=== PATIENT | female | born 1960 | race Caucasian/White ===

== ENCOUNTER 2021-04-17 10:32 | Outpatient (CLI) | payer BC, SELFPAY ==
[2021-04-17 10:53] LABS: Hematocrit 48.5 % (37.0-47.0); Hemoglobin 15.8 g/dL (12.0-15.0); Mean Corpuscular HGB Conc 32.6 g/dl (32-36); Mean Corpuscular Hemoglobin 30.9 pg (26-34); Mean Corpuscular Volume 94.7 fl (80-100); Mean Platelet Volume 9.5 fl (7.4-10.4); Platelet Count Result 247 k/mm3 (150-375); Red Blood Count 5.12 M/mm3 (4.2-5.4); Red Cell Distribution Width 13.8 % (11.5-14.5); White Blood Count 11.3 K/mm3 (4.5-10.0)
--- NOTE | 2021-04-17 10:58 | ECG_ITS ---
Measurements Intervals [place] Rate: 86 P: 34 NC: 173 QRS: -15 QRSD: 88 T: 11 QT: 378 QTc: 452 Interpretive Statements SINUS RHYTHM LOW QRS VOLTAGE IN PRECORDIAL LEADS BORDERLINE R WAVE PROGRESSION, ANTERIOR LEADS BORDERLINE T WAVE ABNORMALITY- ANT/INF LEADS BASELINE WANDER- III, AVF, V1-V4 BORDERLINE ECG Electronically Signed On 04-17-2021 11:08:05 CDT by Ruben Hernandez D.O.
[2021-04-17 11:11] LABS: Hemoglobin A1C 7.4 % (<5.7)
[2021-04-17 11:25] LABS: Anion Gap 11 mmol/L (8-16); Blood Urea Nitrogen 14 mg/dL (7-17); Calcium 9.7 mg/dL (8.4-10.2); Carbon Dioxide 28 mmol/L (22-30); Chloride 103 mmol/L (98-107); Estimated Glomerular Filt Rate > 60; Glucose 165 mg/dL (65-110); Potassium 4.5 mmol/L (3.4-5.0); Sodium 142 mmol/L (137-145)
== END 2021-04-17 10:33 | disposition home or self-care (01) ==
PROVIDERS: Visit Provider Surgery Plastic and Reconstructive Surgery
DX: E11.9 Type 2 diabetes mellitus without complications (principal)
CPT/HCPCS: 36415; 80048; 83036; 85027; 93005

== ENCOUNTER 2021-04-20 01:57 | Day surgery (SDC) | payer BC, SELFPAY ==
[2021-04-19 10:44] VITALS: BMI 43.1
[2021-04-20] VITALS (8 sets, daily range): BP systolic 106–158; BP diastolic 66–100; PULSE 85–117; RESP 10–16; TEMP 36.3–36.7; O2SAT 92–96
[2021-04-20 11:47] LABS: Urine Cotinine NEGATIVE
--- NOTE | 2021-04-20 11:53 | WPDANESEPPF ---
Anes - Initial Pre Proc Eval Procedure: Operation Date: 04/20/21 13:00 Proposed Procedures p Bilateral Breast Reduction - Bao Shi MD Date/Time: 04/20/21 11:53 Surgeon: Bao Shi MD Pre Op Diagnosis: Macromastia Patient Data Age: 60 Gender: F Height: 1.65 m Weight: 117.48 kg Allergies Allergy/AdvReac Type Severity Reaction Status Date / Time No Known Allergies Allergy Verified 04/20/21 11:34 Home Medications Medication Instructions Recorded Confirmed Type B-complex with vitamin C 1 cap PO DAILY 01/09/21 04/19/21 History azelastine 205.5 mcg (0.15 %) 1 spray INTRANASAL QHS 01/09/21 04/19/21 History nasal spray bupropion HCl 150 mg tablet,12 hr 150 mg PO HS 01/09/21 04/19/21 History sustained-release cholecalciferol (vitamin D3) 10 10 mcg PO DAILY 01/09/21 04/20/21 History mcg (400 unit) capsule citalopram 40 mg tablet 20 mg PO DAILY 01/09/21 04/20/21 History empagliflozin 25 mg tablet 25 mg PO DAILY 01/09/21 04/20/21 History exenatide microspheres 2 mg/0.85 2 mg SUBCUT WEEKLY 01/09/21 04/20/21 History mL subcutaneous auto-injector fluticasone propionate 50 1 spray INTRANASAL DAILY 01/09/21 04/20/21 History mcg/actuation nasal spray,suspension glyburide 5 mg tablet 5 mg PO DAILY 01/09/21 04/20/21 History loratadine 10 mg tablet 10 mg PO DAILY 01/09/21 04/20/21 History montelukast 10 mg tablet 10 mg PO DAILY 01/09/21 04/20/21 History omeprazole 20 mg capsule,delayed 20 mg PO DAILY 01/09/21 04/20/21 History release sitagliptin 50 mg-metformin 1,000 1 tablet PO BID 01/09/21 04/20/21 History mg tablet sulindac 200 mg tablet 200 mg PO BID 01/09/21 04/20/21 History trazodone 150 mg tablet 150 mg PO QHS PRN 01/09/21 04/20/21 History insulin degludec 100 unit/mL 18 unit SUBCUT QHS ml 01/11/21 04/20/21 History subcutaneous solution docusate sodium 100 mg capsule 100 mg PO BID #14 cap 04/17/21 04/19/21 Rx hydrocodone 5 mg-acetaminophen 325 1 tablet PO Q6H PRN #15 tablet 04/17/21 04/19/21 Rx mg tablet ondansetron HCl 4 mg tablet 4 mg PO Q6H PRN #30 tablet 04/17/21 04/19/21 Rx Laboratory Tests 04/20/21 11:28 Cotinine Negative Patient hx anesthesia problems: none Family hx anesthesia problems: none Results Review: All pre-operative results and documents have been reviewed as part of the pre-operative evaluation. [facility] Past Medical History Medical History Depression Diabetes Seasonal allergies Surgical History Surgical History History of carpal tunnel release of both wrists History of D&C Social History Social History Smoking packs per day: 1 Smoking cigarettes per day: 20.0 Years smoked: 30 Smoking pack-years: 30.00 Smoking status: Former smoker Smoking end date: 07/01/10 Alcohol intake: never Substance use: never Substance use type: does not use Living arrangements: with family Spiritual care concerns: No Anes - Eval Final PreProcedure Day of Procedure 04/20/21 11:53 Patient weight: morbidly obese Heart: regular rate and rhythm Lungs: clear to auscultation and normal air movement Airway: Mallampati scale class 1 Neurological: alert and oriented Last oral intake: >/= 8 hours ASA classification: III Emergent: no Anesthetic plan: proceed Anesthesia type and monitoring: general LMA and standard monitoring Results Review: All pre-operative results and documents have been reviewed as part of the pre-operative evaluation. Informed Consent: The patient's anesthetic plan and its attendant risks and benefits were discussed with the patient/family/POA. Questions were solicited and answers provided to the satisfaction of the patient/family/POA.
--- NOTE | 2021-04-20 12:03 | P.OP_ITS ---
Procedure Note - Detailed Date of Procedure 04/20/21 Pre-op Diagnosis Macromastia Post-op Diagnosis same Procedure Performed Bilateral reduction mammaplasty Surgeon Bao Shi MD Anesthesia general Findings Inverted T Free nipple graft Tissue removed: Right - 3053.5 grams Left - 2907.2 grams Lipoaspirate 700cc Description of Procedure She is here today for bilateral breast reduction. Previously and again today the risks, benefits, alternatives were discussed in extensive detail. I wanted her to be very realistic about the risks involved as well as expectations. We discussed aftercare and what to monitor for. She understands we can never guara ntee final breast size and there will always be asymmetry. I was very upfront and honest about the risks of sensation change and even nipple loss (). Made sure answered all of her questions to her satisfaction today and consent was obtained. She was marked in the preoperative holding area with their verification. The patient was taken to the operating room placed supine on the operating table. Anesthesia was provided by anesthesiology. She was prepped and draped in a standard sterile fashion. A surgical time-out was taken. Stab incisions were made and I tumessed with a tumescent solution. I marked out the nipple-areolar complex at 42 mm. This was removed and kept in moist gauze. I then removed the inferior portion of the breast as well as the central keel to get shape based on preoperative planning. At this point copiously irrigated with saline solution and verified a strict hemostasis. I reapproximated the pillars using a 2-0 PDS. I tailor tacked the breast into place with enrrique. She was placed in a sitting position. I verified the nipple-areolar complex position based on preoperative markings, intraoperative measurements, and observation which were in full agreement. This nipple-areolar complex was marked at 42 mm in size. There was clear shape / volume discrpency that was adjusted with 5mm basket canula based on S.A.F.E. techinque. Placed supine. Nipple-areolar complex was defatted and sutured into place with 5-0 chromic. I closed IMF deep with 1 strattafix. I closed the vertical incision with 3-0 Monocryl in the IMF with 3-0 stratafix. Then everything was closed using a running subcuticular 4-0 Monocryl followed by Steri-Strips. A tie over bolster was created with wet cotton and 3-0 Nylon. A dressing was placed followed by surgical bra. Patient was awoke and taken to PACU without difficulty. All instrument sponge counts were correct at the end of the case. Estimated Blood Loss 75 Drains No Packing Yes (bolster) Pathology yes Complications No immediate complications Condition stable Disposition PACU
[2021-04-20] MEDS: LACTATED RINGERS 1,000 ML 30 ML IV CONT ×2 (12:07→16:03)
--- NOTE | 2021-04-20 12:10 | WPDHPUPDATE1 ---
History and Physical Update Update Date/Time: 04/20/21 12:10 History and Physical has been reviewed, including an updated exam of the patient. There are NO changes in the patient's condition. Risks, benefits, and alternatives have been discussed and questions answered. Patient agrees to proceed with procedure.
[2021-04-20 12:13] LABS: Glucose Point of Care 162 mg/dl (65-105)
[2021-04-20] MEDS: LACTATED RINGERS IRRIG 1,000 ML, LIDOCAINE HCL 1% LOCAL INJ 50 ML, EPINEPHrine HCL INJ ... INFILTRATE (12:17)
[2021-04-20] MEDS: ceFAZolin 2 GM/D5W 50 ML 2 GM/50 ML BAG IVPB (12:17)
[2021-04-20] MEDS: TRANEXAMIC ACID 1,000MG/ISO100 1,000 MG/100 ML BAG 200 MG IVPB (12:17)
--- NOTE | 2021-04-20 15:18 | SUR.OPER ---
Fresh specimens given to ELISABETH Seaman. Janine in pathology received specimens at 1514 per Jurgen PCT
[2021-04-20 16:12] LABS: Glucose Point of Care 231 mg/dl (65-105)
[2021-04-20] MEDS: INSULIN HUMAN REGULAR (*BKC) 100 UNITS/ML IV PUSH (16:18)
[2021-04-20] MEDS: fentaNYL CITRATE INJ (*CRX) 100 MCG/2 ML VIAL 25 MCG IV PUSH (16:43)
--- NOTE | 2021-04-20 16:55 | SUR.PHASEI ---
Informed on-call anesthesia about patient's HR running in 110's/sinus tach. States can give fluid bolus, no additional orders.
[2021-04-20] MEDS: oxyCODONE HCL (*CRX) 5 MG TAB IR PO (17:22)
== END 2021-04-20 17:50 | disposition home or self-care (01) ==
PROVIDERS: PCP Nurse Practitioner Family; Visit Provider Surgery Plastic and Reconstructive Surgery
PROC: 0HBV0ZZ Excision of Bilateral Breast, Open Approach (ICD-10-PCS; CPT 19318; principal; 2021-04-20 13:00)
DX: N62 Hypertrophy of breast (principal); N60.32 Fibrosclerosis of left breast; N60.31 Fibrosclerosis of right breast; N60.42 Mammary duct ectasia of left breast; N60.41 Mammary duct ectasia of right breast; M54.9 Dorsalgia, unspecified; G89.29 Other chronic pain; M54.2 Cervicalgia; M25.511 Pain in right shoulder; M25.512 Pain in left shoulder; N64.4 Mastodynia; L98.9 Disorder of the skin and subcutaneous tissue, unspecified; E11.9 Type 2 diabetes mellitus without complications; F32.9 Major depressive disorder, single episode, unspecified; Z87.891 Personal history of nicotine dependence; E66.01 Morbid (severe) obesity due to excess calories; Z68.41 Body mass index [BMI] 40.0-44.9, adult; Z79.84 Long term (current) use of oral hypoglycemic drugs; Z79.4 Long term (current) use of insulin
CPT/HCPCS: 19318; 80307; 82948; 88305; A9270; J0171; J0330; J0690; J1100; J1170; J1815; J2250; J2405; J2704; J3010; J7120

== ENCOUNTER 2022-02-07 11:05 | Outpatient (CLI) | payer BC, SELFPAY ==
[2022-02-07 13:05] LABS: Hemoglobin A1C 6.5 % (<5.7)
== END 2022-02-07 11:06 | disposition home or self-care (01) ==
LOC: ANHLAB 11:10
PROVIDERS: PCP Nurse Practitioner Family; Visit Provider Surgery Plastic and Reconstructive Surgery
DX: E11.9 Type 2 diabetes mellitus without complications (principal)
CPT/HCPCS: 36415; 83036

== ENCOUNTER 2022-02-21 02:15 | Day surgery (SDC) | payer BC, OTHER, SELFPAY ==
[2022-02-19 13:59] VITALS: BMI 37.5
--- NOTE | 2022-02-19 14:13 | PC.NURSE ---
Report to the Outpatient Waiting Room, entrance under the green pavilion located off [facility], at time 1000 on date 02/21/22. OR Time: 1200. - You and your visitor will be asked to self-screen and do not enter if you have any COVID symptoms. - Only one visitor and NO children visitors are allowed at this time. - The patient visitor is requested to leave or wait in car when not with patient due to restrictions. - A mask is required within the hospital. Patients may have clear liquids (water, carbonated beverages, clear teas, apple juice) until 3 hours prior to surgery with a maximum of 20 ounces. - No food from midnight until time of surgery Take the following medications with a SIP of water the morning of surgery: Citalopram Medications to discontinue per physician Vitamins/supplements Date to take last dose-stop starting today Please no make-up, nail bulgarian, hairspray, perfume, deodorant, or body powder the day of surgery. No jewelry (including any body piercings) or valuables the day of surgery, leave them at home. Please take a shower or bath the night before, or the morning of, surgery with an antibacterial soap. Wear comfortable, loose fitting clothing. - Jewelry must be removed prior to entering the operating room. Rings and piercings that are not removed may be cut off. - The hospital will not accept responsibility for valuables. - Please leave all valuables, including medications, at home the day of surgery. If you are going home after surgery, a licensed company driver must drive you home. - NO public transportation without another adult. - We recommend that an adult stay with you for 24 hours following discharge. - We also recommend that you do not drive, make important decision, drink alcoholic beverages, or take any drugs that were not prescribed by your health care provider for at least 24 hours after your discharge time. Follow any additional instructions given to you from your surgeon. If you or anyone in your household have experienced Covid symptoms in the past week, please notify your surgeon or the nurse liaison at the phone number below for possible testing. Telephone instructions given to patient and asked if any additional questions and then verbalized understanding. Patient advised to call surgeon office or pre surgery nurse liaison [phone] if any additional questions.
--- NOTE | 2022-02-20 13:56 | WPDANESEPPF ---
Anes - Initial Pre Proc Eval Procedure: Operation Date: 02/21/22 12:00 Proposed Procedures p Bilateral Lateral Breast Skin Excision, Right Breast Fat Grafting, Right Breast Scar Revision Inferior T Junction - Bao Shi MD Date/Time: 02/20/22 13:56 Surgeon: Bao Shi MD Pre Op Diagnosis: skin laxity, hx of breast reduction Patient Data Age: 61 Gender: F Height: 1.65 m Weight: 102.51 kg Allergies Allergy/AdvReac Type Severity Reaction Status Date / Time hydrocodone [From [place]] AdvReac Mild Foot Verified 02/19/22 13:53 itching Home Medications Medication Instructions Recorded Confirmed Type B-complex with vitamin C 1 cap PO DAILY 01/09/21 02/19/22 History azelastine 205.5 mcg (0.15 %) 1 spray intranasal QHS 01/09/21 02/19/22 History nasal spray bupropion HCl 150 mg tablet,12 hr 150 mg PO HS 01/09/21 02/19/22 History sustained-release (Wellbutrin SR) citalopram 40 mg tablet 20 mg PO DAILY 01/09/21 02/19/22 History empagliflozin 25 mg tablet 25 mg PO DAILY 01/09/21 02/19/22 History (Jardiance) exenatide microspheres 2 mg/0.85 2 mg subcut WEEKLY 01/09/21 02/19/22 History mL subcutaneous auto-injector (Bydureon BCise) fluticasone propionate 50 1 spray intranasal DAILY 01/09/21 02/19/22 History mcg/actuation nasal spray,suspension (Flonase Allergy Relief) glyburide 5 mg tablet 5 mg PO DAILY 01/09/21 02/19/22 History loratadine 10 mg tablet (Allergy 10 mg PO DAILY 01/09/21 02/19/22 History Relief (loratadine)) montelukast 10 mg tablet 10 mg PO DAILY 01/09/21 02/19/22 History (Singulair) omeprazole 20 mg capsule,delayed 20 mg PO DAILY 01/09/21 02/19/22 History release sitagliptin 50 mg-metformin 1,000 1 tablet PO BID 01/09/21 02/19/22 History mg tablet (Janumet) sulindac 200 mg tablet 200 mg PO BID 01/09/21 02/19/22 History trazodone 150 mg tablet 150 mg PO QHS PRN Insomnia 01/09/21 02/19/22 History insulin degludec 100 unit/mL 18 unit subcut QHS 01/11/21 02/19/22 History subcutaneous solution (Tresiba U-100 Insulin) cephalexin 500 mg capsule 500 mg PO Q8H #21 caps 05/10/21 02/19/22 Rx docusate sodium 100 mg capsule 100 mg PO DAILY #14 caps 02/08/22 02/19/22 Rx (Colace) oxycodone-acetaminophen 5 mg-325 1 tablet PO Q6H PRN pain #30 tabs 02/09/22 02/19/22 Rx mg tablet (Percocet) cholecalciferol (vitamin D3) 125 5,000 unit PO DAILY 02/19/22 02/19/22 History mcg (5,000 unit) tablet (Vitamin D3) Patient hx anesthesia problems: none Family hx anesthesia problems: none Results Review: All pre-operative results and documents have been reviewed as part of the pre-operative evaluation. [facility] Past Medical History Medical History (Updated 02/20/22 @ 13:56 by Phil Campbell DO) Depression Diabetes GERD (gastroesophageal reflux disease) Osteoarthritis Seasonal allergies Surgical History Surgical History (Updated 02/08/22 @ 11:51 by Anyi Henson) History of carpal tunnel release of both wrists History of D&C Social History Social History Smoking packs per day: 1 Smoking cigarettes per day: 20.0 Years smoked: 27 Smoking pack-years: 27.00 Smoking status: Former smoker Tobacco type: cigarettes Smoking end date: 02/19/05 Alcohol intake: current Alcohol use details: 2x/year Substance use: never Substance use type: does not use Living arrangements: with family Spiritual care concerns: No Anes - Eval Final PreProcedure Day of Procedure 02/20/22 13:56 Patient weight: obese Heart: regular rate and rhythm Lungs: clear to auscultation Airway: Mallampati scale class II Neurological: alert and oriented Last oral intake: >/= 8 hours ASA classification: III Emergent: no Anesthetic plan: proceed Anesthesia type and monitoring: general ETT and standard monitoring Results Review: All pre-operative results and documents have b
[2022-02-21] VITALS (7 sets, daily range): BP systolic 109–121; BP diastolic 50–76; PULSE 87–100; RESP 10–18; TEMP 36.3; O2SAT 95–99
[2022-02-21 10:38] LABS: Urine Cotinine NEGATIVE
[2022-02-21 10:52] LABS: Glucose Point of Care 128 mg/dl (65-105)
--- NOTE | 2022-02-21 11:44 | SUR.PREOP ---
BMP HEMOLYZED; TEST WAIVED BY DR. EVANS. ACCUCHECK TODAY 128MG/DL. DR. LECHUGA PT TK ALL ORAL DIABETIC MEDS.
--- NOTE | 2022-02-21 11:56 | WPDHPUPDATE1 ---
History and Physical Update Update Date/Time: 02/21/22 11:56 History and Physical has been reviewed, including an updated exam of the patient. There are NO changes in the patient's condition. Risks, benefits, and alternatives have been discussed and questions answered. Patient agrees to proceed with procedure.
[2022-02-21] MEDS: ceFAZolin 2 GM/D5W 50 ML 2 GM/50 ML BAG IVPB (12:02)
[2022-02-21] MEDS: TRANEXAMIC ACID 1,000MG/ISO100 1,000 MG/100 ML BAG 200 MG IVPB (12:04)
--- NOTE | 2022-02-21 14:53 | SUR.OPER ---
left lateral breast skin excision start 1351 end 1430.
[2022-02-21] MEDS: LACTATED RINGERS IRRIG 1,000 ML, LIDOCAINE HCL 1% LOCAL INJ 50 ML, EPINEPHrine HCL INJ ... INFILTRATE ×2 (15:00)
--- NOTE | 2022-02-21 15:18 | SUR.OPER ---
right lateral breast skin excision start 144 end 15:17 surgeon time
--- NOTE | 2022-02-21 15:20 | SUR.OPER ---
lateral positioning turned with assistance of 6 for left and right sides
--- NOTE | 2022-02-21 15:46 | W.PM.PROC2 ---
Procedure Note - Detailed Date of Procedure 02/21/22 Pre-op Diagnosis skin laxity, hx of breast reduction Post-op Diagnosis Same Procedure Performed 1. Right breast 12 cm revision along IMF 2. Fat grafting right breast 100cc 3. Bilateral lateral breast / chest wall tissue excision 450grams per side, lipoaspirate 400cc per side. Surgeon Bao Shi MD Anesthesia General Description of Procedure Preoperatively the risks, benefits, alternatives were discussed in extensive detail. I want her to be very realistic about the risks involved as well as expectations. Made sure answered every 1 of her questions to her satisfaction. We spent extensive time discussing what we could and could not accomplish. She will always have a degree of laxity given her BMI. She will always have asymmetry. All questions answered to her satisfaction today. She voiced a clear understanding. Consent obtained. Patient was taken to the operating room placed supine on the operating room table. Anesthesia provided by anesthesiology and prepped and draped in a standard sterile fashion. Surgical time-out was taken. Stab incisions were made and I tumesced bilateral lateral chest wall/breast with a tumescent solution. Once adequate time for hemostasis suction lipectomy was completed with a multi hole 3 mm cannula to a gravity separation device. I waited for full separation of the adipose tissue and using a 4 mm cannula he was infiltrated into the right breast inferior pole which she had identified as her area of concern. Fifteen blade used to excise the IMF on the right breast and this was closed using a 3-0 strata fix in a running subcuticular 4-0 Monocryl with tissue glue. She was then turned onto her side. We did this bilateral. I identified the area of concern with excess tissue and suction lipectomy was completed for contour of this area as well as a 10 blade used to make an incision resecting the intervening tissue. This was closed in many layers to obliterate all space with 2-0 Stratafix followed by 3-0 Stratafix in a running subcuticular 4-0 Monocryl and tissue glue. Once both sides had been completed I returned her supine. She still had some slight excess axillary fullness in a stab incision was made. Suction lipectomy was completed in these areas using a 4 mm basket cannula contour. The sites were closed with 4-0 nylon. Dressings were placed. She tolerated the procedure well. She was woken taken to the PACU without difficulty. All instrument sponge counts were correct at the end of the case. Estimated Blood Loss 50 Drains No Packing No Pathology None sent Complications No immediate complications Condition Stable Disposition PACU
[2022-02-21] MEDS: LACTATED RINGERS 1,000 ML 30 ML IV CONT ×2 (16:02)
[2022-02-21 16:07] LABS: Glucose Point of Care 181 mg/dl (65-105)
[2022-02-21] MEDS: oxyCODONE HCL (*CRX) 5 MG TAB IR PO (17:03)
== END 2022-02-21 17:50 | disposition home or self-care (01) ==
PROVIDERS: PCP Nurse Practitioner Family; Visit Provider Surgery Plastic and Reconstructive Surgery
PROC: (CPT 15769; principal; 2022-02-21 12:00)
DX: N62 Hypertrophy of breast (principal); L57.4 Cutis laxa senilis; E11.9 Type 2 diabetes mellitus without complications; M54.9 Dorsalgia, unspecified; G89.29 Other chronic pain; M54.2 Cervicalgia; M25.511 Pain in right shoulder; M25.512 Pain in left shoulder; K21.9 Gastro-esophageal reflux disease without esophagitis; F32.A Depression, unspecified; Z79.84 Long term (current) use of oral hypoglycemic drugs; Z79.4 Long term (current) use of insulin; Z87.891 Personal history of nicotine dependence; E66.9 Obesity, unspecified; Z68.38 Body mass index [BMI] 38.0-38.9, adult
CPT/HCPCS: 19380; 15771; 15772; 80307; 82948; A9270; J0171; J0690; J1100; J1170; J2250; J2704; J2710; J3010; J7120